=== PATIENT | female | born 1960 | race Asian ===

== ENCOUNTER 2018-10-04 09:39 | Emergency (ER) | payer OTHER ==
[2018-10-04 09:47] VITALS: BP 154/93; PULSE 69; TEMP 98; BMI 23.7
[2018-10-04] MEDS ORDERED: ACETAMINOPHEN 325 MG TABLET (FP) PO ONE (10:00)
[2018-10-04] MEDS ORDERED: ACETAMINOPHEN 325 MG TABLET (FP) ONE (10:06)
--- NOTE | 2018-10-04 11:03 | PDOC ---
History of Present Illness - General Chief Complaint: Injury Stated Complaint: FALL Time Seen by Provider: 10/04/18 09:54 History Source: Patient Exam Limitations: No Limitations - History of Present Illness Initial Comments: 10/04/18 12:54 58 yr female with c/o slip on ice and fell down 6 steps at work hit left side of head and low back. no LOC. pt applied ice to the left side of head and the lower back. no vomiting or headache neg abd pain. Occurred: reports: just prior to arrival Severity: reports: mild Pain Location: reports: back, head Method of Injury: Yes: fall Modifying Factors: improves with: None Loss of Consciousness: no loss of consciousness Associated Symptoms (Fall): denies symptoms Past History - Past Medical History Allergies/Adverse Reactions: Allergies Allergy/AdvReac Type Severity Reaction Status Date / Time No Known Allergies Allergy Verified 10/04/18 09:42 Home Medications: Ambulatory Orders NK [No Known Home Medication] 10/04/18 COPD: No - Suicide/Smoking/Psychosocial Hx Smoking Status: No Smoking History: Never smoked Number of Cigarettes Smoked Daily: 0 Trauma Specific PMHX - Complaint Specific PMHX Arthritis: No Review of Systems - Review of Systems Able to Perform ROS?: Yes Is the patient limited Norwegian proficient: No Constitutional: No: Symptoms Reported HEENTM: No: Symptoms Reported Respiratory: No: Symptoms reported Cardiac (ROS): No: Symptoms Reported ABD/GI: No: Symptoms Reported : No: Symptoms Reported Musculoskeletal: Yes: Symptoms Reported *Physical Exam - Vital Signs Last Vital Signs Temp Pulse Resp BP Pulse Ox 98 F 69 18 154/93 100 10/04/18 09:40 10/04/18 09:40 10/04/18 09:40 10/04/18 09:40 10/04/18 09:40 - Physical Exam General Appearance: Yes: Nourished, Appropriately Dressed HEENT: positive: EOMI, YAHAIRA Neck: positive: Supple. negative: Tender Respiratory/Chest: positive: Lungs Clear, Normal Breath Sounds Cardiovascular: positive: Regular Rhythm, Regular Rate Gastrointestinal/Abdominal: positive: Normal Bowel Sounds, Soft Musculoskeletal: positive: Normal Inspection, Vertebral Tenderness (coccyx, sacral, lumbar spine and paraspinal ttp soft tissue no swelling no bruising). negative: CVA Tenderness, CVA Tenderness (R), CVA Tenderness (L), Decreased Range of Motion, Muscle Spasm Extremity: positive: Normal Capillary Refill, Normal Inspection, Normal Range of Motion. negative: Tender Integumentary: positive: Normal Color, Dry, Warm Neurologic: positive: property insurance inspector II-XII NML intact, Fully Oriented, Alert, Normal Mood/ Affect, Normal Response, Finger to Nose. negative: Numbness, Sensory Deficit, Confused, Disoriented Moderate Sedation - Procedure Monitoring Vital Signs: Procedure Monitoring Vital Signs Temperature 98 F 10/04/18 09:40 Pulse Rate 69 10/04/18 09:40 Respiratory Rate 18 10/04/18 09:40 Blood Pressure 154/93 10/04/18 09:40 O2 Sat by Pulse Oximetry (%) 100 10/04/18 09:40 ED Treatment Course - RADIOLOGY Radiology Studies Ordered: Category Date Time Status COCCYX [RAD] Stat Radiology 10/04/18 10:00 Taken SPINE-THORACIC [RAD] Stat Radiology 10/04/18 10:00 Completed - Medications Given in the ED: ED Medications Discontinued Medications Generic Name Dose Route Start Last Admin Trade Name Tyrell PRN Reason Stop Dose Admin Acetaminophen 650 mg 10/04/18 10:00 10/04/18 10:09 Tylenol - PO 10/04/18 10:01 650 mg ONCE ONE Administration Medical Decision Making - Medical Decision Making 10/04/18 12:59 cc: slip and fall no LOC , hit side of head no loc neg vomiting, neg dizzyness will get xrays r/o fracture tylenol given pt ambulating freely no distress *DC/Admit/Observation/Transfer Diagnosis at time of Disposition: Contusion Qualifiers: Encounter type: initial encounter Contusion area: lower back Qualified Code(s) : S30.0XXA - Contusion of lower back and pelvis, initial encounter Head injury Qualifiers: Encounter type: initial encounter Qualified Code(s): S09.90XA - Unspecified injury of head, initial encounter - Discharge Dispostion Disposition: HOME Condition at time of disposition: Good - Referrals Referrals: Noemi Chery MD [Primary Care Provider] - - Patient Instructions Printed Discharge Instructions: DI for Closed Head Injury Additional Instructions: apply ice to the areas of pain every 2 hrs for 15 minutes take motrin as needed for pain (over the counter motrin, advil or ibuprofen) follow with your doctor in 2 days for follow up Return if any severe pain, vomiting confusion or any other concerns - Post Discharge Activity Forms/Work/School Notes: Back to Work
== END 2018-10-04 11:20 | disposition home or self-care (01) ==
LOC: JER 09:39 → JERFT 09:39
DX: S30.0XXA Contusion of lower back and pelvis, initial encounter (principal); W00.1XXA Fall from stairs and steps due to ice and snow, initial encounter; Y93.89 Activity, other specified; Y92.118 Other place in children's home and orphanage as the place of occurrence of the external cause; Y99.0 Civilian activity done for income or pay
CPT/HCPCS: 72070-TC-FY; 72220-TC-FY; 99281-25

== ENCOUNTER 2021-11-02 14:00 | Inpatient (IN) | payer OTHER ==
[2021-10-27 12:01] VITALS: BMI 25.1
[2021-12-07] MEDS ORDERED: THROMBIN (BOVINE) 20,000 UNIT VIAL TP ONE (07:15)
[2021-12-07] MEDS ORDERED: GENTAMICIN SO4 80 MG/2 ML VIAL ONE (07:15)
[2021-12-07] MEDS ORDERED: LIDOCAINE 1%/EPI 1:100000 (20 ML MULTI DOSE VIAL) ONE (07:15)
[2021-12-07] MEDS ORDERED: BUPIVACAINE HCL/PF 0.5% (5MG/ML) 10 ML VIAL ONE (07:16)
[2021-12-07] MEDS ORDERED: BUPIVACAINE LIPOSOME/PF (EXPAREL) 266 MG/20 ML VIAL ONE (07:16)
[2021-12-07] MEDS ORDERED: LIDOCAINE 1%/EPI 1:100000 (20 ML MULTI DOSE VIAL) IJ ONE ×2 (07:25→08:37)
[2021-12-07] MEDS ORDERED: ceFAZolin 2 GRAM PREMIX BAG IVPB ONE ×2 (07:26→08:30)
[2021-12-07] MEDS ORDERED: VANCOMYCIN 1 GM in D5W (PRE-DOCKED) 1,000 MG/250 ML IVPB ONE ×2 (07:26→08:40)
[2021-12-07] MEDS ORDERED: GENTAMICIN SO4 80 MG/2 ML VIAL IVPB ONE ×2 (07:27→09:40)
[2021-12-07] MEDS ORDERED: THROMBIN (BOVINE) 5,000 UNIT VIAL TP ONE ×2 (07:27→09:05)
[2021-12-07] MEDS ORDERED: HYDROGEN PEROXIDE 473 ML PO ONE ×2 (07:28→09:42)
[2021-12-07] MEDS ORDERED: ROCURONIUM BROMIDE 50 MG/5 ML SYRINGE ONE (07:51)
[2021-12-07] MEDS ORDERED: LIDOCAINE HCL/PF 2% SDV 5ML VIAL ONE (07:51)
[2021-12-07] MEDS ORDERED: PROPOFOL 20 ML ONE ×2 (07:51)
[2021-12-07] MEDS ORDERED: DEXAMETHASONE SOD PHOSPHATE 4 MG/1 ML VIAL ONE (07:51)
[2021-12-07] MEDS ORDERED: ONDANSETRON 4 MG/2 ML VIAL ONE (07:51)
[2021-12-07] MEDS ORDERED: fentaNYL CITRATE 250 MCG/5 ML VIAL ONE (07:51)
[2021-12-07] MEDS ORDERED: MIDAZOLAM HCL 2 MG/2 ML SINGLE DOSE VIAL ONE (07:52)
[2021-12-07] MEDS ORDERED: ceFAZolin SODIUM 1 GM VIAL ONE ×2 (08:03→16:50)
[2021-12-07] MEDS ORDERED: KETAMINE HCL 200 MG/20 ML VIAL ONE (08:08)
[2021-12-07] MEDS ORDERED: VANCOMYCIN 1,000 MG VIAL (RESTRICTED TO ID ONLY) ONE (08:36)
[2021-12-07] MEDS ORDERED: TRANEXAMIC ACID 1000 MG/10 ML VIAL ONE (08:36)
[2021-12-07] MEDS ORDERED: NEOSTIGMINE METHYLSULFATE 0.5 MG/1 ML - 10 ML MDV ONE (09:47)
[2021-12-07] MEDS ORDERED: GLYCOPYRROLATE 0.2 MG/1 ML VIAL ONE (09:47)
[2021-12-07] MEDS ORDERED: oxyCODONE HCL 5 MG TABLET PO PRN (10:22)
[2021-12-07] MEDS ORDERED: ONDANSETRON 4 MG/2 ML VIAL IVPUSH PRN ×2 (10:22→10:45)
[2021-12-07] MEDS ORDERED: ACETAMINOPHEN 1000 MG/100 ML BAG IVPB ONE (10:23)
[2021-12-07] MEDS ORDERED: KETOROLAC TROMETHAMINE 30 MG/1 ML VIAL IVPUSH PRN (10:24)
[2021-12-07] MEDS ORDERED: KETOROLAC TROMETHAMINE 30 MG/1 ML VIAL ONE (10:27)
[2021-12-07] MEDS ORDERED: LACTATED RINGERS SOLUTION 1,000 ML IV SCH (10:30)
[2021-12-07] MEDS: HEPARIN NA (PORCINE) 5,000 UNITS/ML 1ML VIAL SQ SCH ×4 (10:45→21:31)
[2021-12-07] MEDS ORDERED: diazePAM 2 MG TABLET PO PRN (10:47)
[2021-12-07] MEDS: DOCUSATE SODIUM 100 MG CAPSULE (FP) PO SCH ×2 (14:00→21:31)
[2021-12-07] MEDS ORDERED: CEFAZOLIN 1 GM in DEXTROSE 5%-WATER - 50 ML IVPB SCH (17:00)
[2021-12-07] MEDS: ACETAMINOPHEN 1000 MG/100 ML BAG IVPB SCH ×3 (17:30→23:13)
[2021-12-07] MEDS: CEFAZOLIN 1 GM in DEXTROSE 5%-WATER - 50 ML IVPB SCH ×2 (17:30)
[2021-12-07] MEDS ORDERED: ACETAMINOPHEN INJECTION 100 ML IVPB ONE (17:39)
[2021-12-07] MEDS: LACTATED RINGERS SOLUTION 1,000 ML/1,000 ML INFUS.BAG IV SCH ×2 (18:00→19:42)
[2021-12-07] MEDS ORDERED: ATORVASTATIN CA 10 MG TABLET (FP) PO SCH (22:00)
[2021-12-08] MEDS ORDERED: ceFAZolin SODIUM 1 GM VIAL ONE ×2 (01:33→10:55)
[2021-12-08] MEDS ORDERED: DEXTROSE 5%-WATER - 50 ML IVPB ONE ×2 (01:34→10:56)
[2021-12-08] MEDS: LACTATED RINGERS SOLUTION 1,000 ML/1,000 ML INFUS.BAG IV SCH (02:15)
[2021-12-08] MEDS: CEFAZOLIN 1 GM in DEXTROSE 5%-WATER - 50 ML IVPB SCH ×2 (02:16→11:08)
[2021-12-08] MEDS: ACETAMINOPHEN 1000 MG/100 ML BAG IVPB SCH (05:48)
[2021-12-08] MEDS: DOCUSATE SODIUM 100 MG CAPSULE (FP) PO SCH ×2 (05:48→15:20)
[2021-12-08] MEDS: HEPARIN NA (PORCINE) 5,000 UNITS/ML 1ML VIAL SQ SCH ×2 (05:57→15:21)
[2021-12-08 09:26] LABS: HEMATOCRIT 37.4 % (32.4-45.2); HEMOGLOBIN 11.9 GM/dL (10.7-15.3); MCH 27.6 pg (25.7-33.7); MCHC 31.9 g/dl (32.0-36.0); MEAN CELL VOLUME 86.5 fl (80-96); MEAN PLT VOLUME 7.9 fl (7.5-11.1); PLATELET COUNT 294 10^3/uL (134-434); RBC 4.33 M/mm3 (3.60-5.2); WHITE BLOOD COUNT 11.7 K/mm3 (4.0-10.0)
[2021-12-08 09:55] LABS: BLOOD UREA NITROGEN 14.7 mg/dL (7-18)
[2021-12-08 09:56] LABS: CALCIUM 9.7 mg/dL (8.5-10.1)
[2021-12-08 09:57] LABS: MAGNESIUM 2.1 mg/dL (1.8-2.4)
[2021-12-08 09:58] LABS: CREATININE 0.6 mg/dL (0.55-1.3); PHOSPHOROUS 4.2 mg/dL (2.5-4.9)
[2021-12-08] MEDS ORDERED: ACETAMINOPHEN 1000 MG/100 ML BAG IVPB PRN (10:23)
[2021-12-08] MEDS: LETROZOLE 2.5 MG TABLET (FP) PO SCH ×2 (11:08→11:10)
[2021-12-08 15:29] VITALS: BP 155/88; PULSE 78; TEMP 98.4
== END 2021-12-08 18:25 | disposition home or self-care (01) | DRG 321 ==
LOC: J2C 12-07 04:21 → J8W 12-07 18:23
PROVIDERS: ADMIT Internal Medicine
PROC: 0RB30ZZ Excision of Cervical Vertebral Disc, Open Approach (ICD-10-PCS; 2021-12-07)
PROC: 00NW0ZZ Release Cervical Spinal Cord, Open Approach (ICD-10-PCS; 2021-12-07)
PROC: 4A11X4G Monitoring of Peripheral Nervous Electrical Activity, Intraoperative, External Approach (ICD-10-PCS; 2021-12-07)
PROC: 0RG20A0 Fusion of 2 or more Cervical Vertebral Joints with Interbody Fusion Device, Anterior Approach, Anterior Column, Open Approach (ICD-10-PCS; principal; 2021-12-07 08:00)
DX: M47.12 Other spondylosis with myelopathy, cervical region (principal); M40.202 Unspecified kyphosis, cervical region; E78.5 Hyperlipidemia, unspecified; Z85.3 Personal history of malignant neoplasm of breast
CPT/HCPCS: 36415; 72125-TC; 76000-TC-FY; 80048; 83735; 84100; 85027; 86850; 86900; 86901; 94760; 97116-GP; 97161-GP; J1644